=== PATIENT | female | born 1950 | race Caucasian/White ===

== ENCOUNTER 2018-10-02 22:01 | Emergency (ER) | payer MEDICARE, SELFPAY ==
[~2018-10-02] VITALS: Ht 154.9 cm; Wt 50.0 kg
[2018-10-02 23:19] VITALS: BP 94/59
== END 2018-10-03 00:24 | disposition home or self-care (01) ==
LOC: ED 23:20
DX: S06.0X9A Concussion with loss of consciousness of unspecified duration, initial encounter (principal); W18.30XA Fall on same level, unspecified, initial encounter; Y93.89 Activity, other specified; Y92.009 Unspecified place in unspecified non-institutional (private) residence as the place of occurrence of the external cause; Y99.8 Other external cause status
CPT/HCPCS: 70450; 72125; 99284